=== PATIENT | male | born 1985 | race Caucasian/White ===

== ENCOUNTER 2018-06-27 07:13 | Observation (INO) | payer OTHER ==
[~2018-06-27] VITALS: Ht 172.7 cm; Wt 63.2 kg
[2018-06-27] MEDS ORDERED: ULTRAM 50MG50 MG PO (07:31)
[2018-06-27] MEDS ORDERED: DICLOFENAC SODI50 MG PO (07:31)
[2018-06-27] MEDS ORDERED: CIPROFLOXACIN500 MG PO (07:31)
[2018-06-27] MEDS ORDERED: KETOROLAC TROMETHAMINE 30 MG/ML VIAL IV STA (07:33)
[2018-06-27] MEDS ORDERED: ONDANSETRON HCL INJ 2MG/ML 2ML 2 MG/ML VIAL IV STA (07:33)
[2018-06-27] MEDS ORDERED: CEFTRIAXONE SOD 1 GM/NS 50 ML 50 ML IV ONE (07:45)
[2018-06-27] MEDS ORDERED: MORPHINE SULFATE 5 MG/ML VIAL IV PRN (07:45)
[2018-06-27 07:59] LABS: BASOPHILS % 0.6 % (0.0-1.0); EOSINOPHILS # (AUTO) 0.3 (0.0-0.4); EOSINOPHILS % 4.6 % (0.0-6.0); HEMATOCRIT 44.1 % (38.2-49.6); LYMPHOCYTES % 31.4 % (18.0-39.1); MEAN CORPUSCULAR HEMOGLOBIN 29.3 pg (28-32); MEAN CORPUSCULAR VOLUME 86.1 fL (81-99); MONOCYTES # (AUTO) 0.6 (0.2-0.8); NEUTROPHILS # (AUTO) 3.3 (2.1-6.9); NEUTROPHILS % 52.9 % (38.7-80.0); PLATELET COUNT 237 x10e3/uL (140-360); RED BLOOD COUNT 5.12 x10e6/uL (4.3-5.7); RED CELL DISTRIBUTION WIDTH 11.5 % (11.7-14.4)
[2018-06-27 08:01] LABS: CLARITY,URINE HAZY (CLEAR); COLOR,URINE YELLOW (YELLOW); KETONES,URINE NEGATIVE (NEGATIVE); LEUKOCYTE ESTERASE ,URINE NEGATIVE (NEGATIVE); NITRITE,URINE NEGATIVE (NEGATIVE); PROTEIN,URINE DIPSTICK TRACE (NEGATIVE)
[2018-06-27 08:02] LABS: BILIRUBIN,URINE NEGATIVE (NEGATIVE); URINE UROBILINOGEN 0.2 mg/dL (0.2 - 1)
[2018-06-27 08:09] LABS: INR 0.84; PROTHROMBIN TIME 12.3 seconds (11.9-14.5)
[2018-06-27 08:10] LABS: PARTIAL THROMBOPLASTIN TIME 32.3 seconds (23.8-35.5)
[2018-06-27 08:17] LABS: ALANINE AMINOTRANSFERASE 47 IU/L (0-55); ALBUMIN 4.5 g/dL (3.5-5.0); ALBUMIN/GLOBULIN RATIO 1.3 (0.8-2.0); ALKALINE PHOSPHATASE 77 IU/L (40-150); ANION GAP 15.9 mmol/L (8-16); BLOOD UREA NITROGEN 15 mg/dL (7-26); BUN/CREATININE RATIO 14 (6-25); CALCIUM 9.4 mg/dL (8.4-10.2); CARBON DIOXIDE 26 mmol/L (22-29); CHLORIDE 99 mmol/L (98-107); CREATININE, SERUM 1.04 mg/dL (0.72-1.25); EST GLOMERULAR FILTRATION RATE > 60 ML/MIN (60-); GLUCOSE 95 mg/dL (74-118); MAGNESIUM 2.7 MG/DL (1.3-2.1); POTASSIUM 3.9 mmol/L (3.5-5.1); SODIUM 137 mmol/L (136-145)
[2018-06-27] MEDS: SODIUM CHLORIDE 0.9% 1000ML 1,000 ML IV SCH ×2 (08:21→15:19)
[2018-06-27 08:30] LABS: BACTERIA,URINE FEW /HPF; EPITHELIAL CELLS,URINE FEW /LPF; MUCUS,URINE MANY (RARE)
--- NOTE | 2018-06-27 08:56 | NUR ---
DR FITCH AT BEDSIDE FOR RE-EVAL AND DISCUSSING THE CURRENT PLAN OF CARE WITH PATIENT AND FAMILY,VERBALIZED UNDERSTANDING. NO SIGNS OF ACUTE DISTRESS NOTED AT THIS TIME.
--- NOTE | 2018-06-27 09:44 | Diagnostic Imaging Report ---
Exam: KUB- 2 views Indication: Known left ureteral stone per outside hospital CT. Comparison: None. Findings: Bowel gas partially obscures visualization of bilateral kidneys. There is a 4 mm calcification overlying the left paraspinal musculature at the level of the lower endplate of the L3 vertebral body. There is a 3 mm calcification overlying the right mid kidney. There are bilateral calcified phleboliths. Nonobstructive bowel gas pattern. No acute osseous abnormality. Impression: A 4 mm calcification at the expected location of the proximal left ureter, suggestive of ureteral stone. Correlation with outside hospital CT would be helpful. Possible 3 mm right mid pole renal stone. Signed by: Dr. Frederic Castillo MD on 06/27/2018 9:40 AM
--- NOTE | 2018-06-27 11:02 | NUR ---
VERBAL REPORT GIVEN TO JAC PAN.
--- NOTE | 2018-06-27 11:02 | NUR ---
rec'd pt in walking rounds with jayjay swenson for continuity of care. amaris.s.s
[2018-06-27] MEDS: MORPHINE SULFATE INJ 4 MG/ML INJ 1ML IV PRN ×3 (11:04→19:46)
[2018-06-27] MEDS: ONDANSETRON HCL INJ 2MG/ML 2ML 2 MG/ML VIAL IV PRN ×3 (11:05→19:45)
[2018-06-27] MEDS ORDERED: ONDANSETRON HCL INJ 2MG/ML 2ML 2 MG/ML VIAL ONE ×2 (13:29→18:26)
[2018-06-27] MEDS ORDERED: PROPOFOL IV EMULSION 10 MG/ML 20 ML VIAL ONE (13:29)
[2018-06-27] MEDS ORDERED: LIDOCAINE HCL 2% LOCAL INJ 5 ML SDV VIAL INJ ONE (13:29)
[2018-06-27] MEDS ORDERED: SEVOFLURANE INHAL SOLN 250 ML PEN BTL ONE (13:29)
[2018-06-27] MEDS ORDERED: DEXAMETHASONE SOD PHOS INJ 4 MG/ML VIAL ONE (13:29)
[2018-06-27] MEDS ORDERED: MIDAZOLAM HCL 2 MG/2 ML VIAL ONE (13:39)
--- NOTE | 2018-06-27 13:45 | NUR ---
REPORT CALLED TO JACQUELYN FOR THIS PT. TO GO TO RM 106
--- NOTE | 2018-06-27 13:56 | NUR ---
DR. TAMMI LERMA AT BEDSIDE WITH PATIENT
[2018-06-27 14:31] VITALS: BP 127/60
[2018-06-27 15:21] VITALS: BP 127/66
[2018-06-27] MEDS ORDERED: KETOROLAC TROMETHAMINE 30 MG/ML VIAL IV PRN (16:15)
[2018-06-27] MEDS ORDERED: KETOROLAC TROMETHAMINE 30 MG/ML VIAL IV ONE (16:30)
[2018-06-27] MEDS ORDERED: MEPERIDINE HCL INJ 25 MG/ML VIAL ONE (18:13)
--- NOTE | 2018-06-27 18:14 | Consultation ---
DATE OF CONSULTATION: June 27, 2018 UROLOGY CONSULTATION REASON FOR CONSULTATION: Renal colic. HISTORY OF PRESENT ILLNESS: Negro Sloan is a 33-year-old man, who number of years ago passed a stone with left-sided flank pain at that time. The patient has never seen urologist. He denies previous hematuria, dysuria, urinary tract infections, or any urological intervention. The patient had severe left-sided flank pain and reported to his primary care physician, who ordered a CT. The CT showed an obstructing 5 mm mid left ureteral stone and a nonobstructing 5 mm right renal stone. The patient due to his obstruction was directed to go to the emergency room where he was evaluated and subsequently admitted. PAST MEDICAL AND SURGICAL HISTORY: None. ALLERGIES: NONE KNOWN. CURRENT MEDICATIONS: Normally none. SOCIAL HISTORY: The patient quit smoking half a year ago. He denies current smoking, ethanol, or drug use. 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 He has supportive family and friends at the bedside. FAMILY HISTORY: Significant for kidney stone disease in the patient's brother. REVIEW OF SYSTEMS: As consistent with the above history of present illness and past medical history. Otherwise, negative for all other systems. PHYSICAL EXAMINATION GENERAL: A healthy-appearing 33-year-old male, lying in bed, in no apparent distress. VITAL SIGNS: He is currently afebrile. Vital signs are stable. ABDOMEN: Soft and nondistended. It is tender in the left flank with mild left-sided costovertebral angle tenderness. Kidneys are not palpable without hepatosplenomegaly. No obvious evidence of hernia. GENITOURINARY: Testes are descended bilaterally. Testes and epididymides bilaterally palpably normal. The patient has a normal male phallus and normal on the lesion. RECTAL: Digital rectal exam is deferred at the present time. For the remaining physical examination systems, please refer to the admission history and physical as well as the ERT sheet. LABORATORY STUDIES: Patient's creatinine is 1.04, his white blood cell count is 6300, hemoglobin 16, platelets 237,000. KUB shows a stone present in the location of the mid ureter and another 3 mm stone in the right mid pole. Urine culture is pending. Urinalysis showed 11 to 20 RBCs, 11 to 20 WBCs, but nitrite negative urine. ASSESSMENT 1. Family history of urolithiasis. 2. Renal colic. 3. Microhematuria. 4. Left ureterolithiasis. 5. Right nephrolithiasis. 6. Left hydroureteronephrosis due to stone. 7. Pyuria without symptomatology of urinary tract infection. PLAN 1. I posted the patient emergently in the operating room for cystoscopy with retrograde pyelogram and insertion of the left stent. Due to availability of lithotripsy machine, we will proceed if visualized to perform ESWL in order to save the patient one of the future planned procedures. Following the procedure, the patient may be discharged home from urological standpoint assuming his symptomatology is adequately controlled. 2. Ongoing urological followup is the must. Thank you very much. Job#: [id number] MICHEAL
[2018-06-27] MEDS ORDERED: METOCLOPRAMIDE HCL 10 MG/2ML VIAL ONE (18:27)
--- NOTE | 2018-06-27 18:44 | NUR ---
Pt back to room via stretcher at this time. VSS with even and unlabored respirations on room air. Call light in reach. Addendum: 06/27/18 at 1844 by Portia Juan RN family at bedside
--- NOTE | 2018-06-27 19:30 | NUR ---
RECEIVED REPORT FROM AM RN.WALKING ROUNDS DONE.PAIN VOICED12/27.PAIN MEDICATION GIVEN.AMBULATES. VOIDED.TOLERATING THE DIET.FAMILY MEMBER AT BED SIDE.BED LOCKED AND IN LOWEST POSITION.PHONE AND CALL LIGHT WITHIN REACH.INSTRUCTED TO CALL FOR ASSISTANCE NEEDED.KEEP MONITOR THE PT.
[2018-06-27 20:00] VITALS: BP 130/55
[2018-06-27] MEDS: CEFTRIAXONE SOD 1 GM/NS 50 ML 50 ML IV SCH (20:30)
[2018-06-27 22:30] VITALS: BP 130/55
[2018-06-28] VITALS: BP 132/80
--- NOTE | 2018-06-28 00:20 | NUR ---
RESTING IN THE BED.STABLE CONDITION.
[2018-06-28] MEDS: ONDANSETRON HCL INJ 2MG/ML 2ML 2 MG/ML VIAL IV PRN ×2 (01:16→05:27)
[2018-06-28] MEDS: MORPHINE SULFATE INJ 4 MG/ML INJ 1ML IV PRN ×2 (01:16→05:27)
[2018-06-28 04:00] VITALS: BP 135/68
[2018-06-28] MEDS: SODIUM CHLORIDE 0.9% 1000ML 1,000 ML IV SCH ×2 (04:43→14:02)
--- NOTE | 2018-06-28 06:50 | NUR ---
REPORT GIVEN TO THE ONCOMING RN.WALKING ROUNDS DONE.STABLE CONDITION.
[2018-06-28] MEDS: CEFTRIAXONE SOD 1 GM/NS 50 ML 50 ML IV SCH (08:43)
[2018-06-28 08:48] VITALS: BP 135/68
[2018-06-28 08:50] VITALS: BP 137/66
--- NOTE | 2018-06-28 10:42 | NUR ---
DR. LIZARRAGA ROUNDING AT THIS TIME.
[2018-06-28] MEDS: CELECOXIB 100 MG CAP PO SCH ×2 (11:26→16:43)
[2018-06-28 12:00] VITALS: BP 130/58
[2018-06-28] MEDS ORDERED: TYLENOL # 31 EA PO (18:28)
[2018-06-28] MEDS ORDERED: DITROPAN XL5 MG PO (18:29)
[2018-06-28] MEDS ORDERED: CELEBREX100 MG PO (18:31)
--- NOTE | 2018-06-28 19:10 | NUR ---
Discharge instructions given to patient and family verbally as well as written. Discharge RX's given along with purpose and instructions on how to take. Patient and family verbalize instructions. IV removed with tip intact, dressing applied. All personal belongings packed. Pt escorted to personal vehicle via wheelchair in stable condition [facility] all personal belongings.
[2018-07-04] MEDS ORDERED: PHENAZOPYRIDIN100 MG PO (13:55)
[2018-07-04] MEDS ORDERED: AZO PO (13:58)
--- NOTE | 2018-07-21 09:01 | Operative Report ---
DATE OF PROCEDURE: 06/27/2018 SURGEON: Eben Culver MD PREOPERATIVE DIAGNOSES: 1. Left ureterolithiasis. 2. Left hydronephrosis due to stone. 3. Microhematuria. POSTOPERATIVE DIAGNOSES: 1. Left ureterolithiasis. 2. Left hydronephrosis due to stone. 3. Microhematuria. OPERATIONS PERFORMED: 1. Left-sided extracorporeal shockwave lithotripsy (separate procedure performed in a staged fashion for the left ureterolithiasis). 2. Cystourethroscopy with bilateral ureteral catheterization and retrograde ureteropyelography (separate procedure performed for the microhematuria). 3. Interpretation of retrograde ureteropyelography. 4. Supervision of fluoroscopy, no radiologist present. 5. Cystourethroscopy and insertion of left indwelling ureteral stent (separate procedure performed for diagnosis of the hydronephrosis). ANESTHESIA: General. COMPLICATIONS: None. CLINICAL SUMMARY: Negro Sloan is a 33-year-old man who presented with obstructing ureterolithiasis. He was brought for the above procedures. He was aware of the risks of bleeding, infection, injury to adjacent structures, need for additional procedures, and elected to proceed. OPERATIVE PROCEDURE IN DETAIL: Informed consent was verified. Negro Sloan was properly identified, taken to the operating room, placed on the lithotripsy table in supine position. Anesthesia was uneventfully begun. The patient's left ureterolithiasis was localized with biplanar fluoroscopy. A total of 3000 shocks were delivered to the 5 mm stone with excellent fragmentation noted. The patient was then carefully and gently repositioned in dorsal lithotomy position with all pressure points well padded. His genitalia were prepared and draped in usual sterile fashion. The cystoscope sheath with the visual obturator in place was atraumatically inserted into the patient's urethra and guided down the unremarkable distal urethra through the normal sphincteric region, through the normal prostate bed into the patient's bladder. Panendoscopy revealed no suspicious mucosal lesions, no tumors, no stones, no diverticula. Normally positioned and configured ureteral orifices were identified. There was blood emerging from the left ureteral orifice as one would expect. The ureteral catheter was used to cannulate each ureter and retrograde ureteropyelography was performed. With cystoscope and fluoroscopic guidance, a left-sided indwelling ureteral stent was then placed. It was coiled in the patient's kidney as well as the patient's bladder. The retaining sutures were cut short. Interpretation of Retrograde Ureteropyelography: Contrast was instilled in a retrograde fashion bilaterally. The right side was unremarkable except for the fact that he had a nonobstructing stone, but there was no hydronephrosis. No evidence of obstruction. The left hand side exhibited hydroureteronephrosis down to the level of the patient's ureteral stone. The stent was in good position, coiled in the patient's kidney as well as the patient's bladder at the end of the case. Eben MD [place]/MODL /[id number]
== END 2018-06-28 18:48 | disposition home or self-care (01) ==
LOC: ER 07:13 → ERHOLD 09:26 → MED/SURG 14:17
PROVIDERS: ADMIT Internal Medicine; ATTEND Internal Medicine
DX: N13.2 Hydronephrosis with renal and ureteral calculous obstruction (principal); R31.29 Other microscopic hematuria; N23 Unspecified renal colic; J45.909 Unspecified asthma, uncomplicated; Z84.1 Family history of disorders of kidney and ureter
CPT/HCPCS: 36415; 50590; 52332; 74018; 80053; 81001; 83735; 85025; 85610; 85730; 87086; 99284; C1758; C2617; G0378 ×2; J0696 ×2; J1100; J1885 ×2; J2001; J2175; J2250; J2270 ×2; J2405 ×2; J2704; J2765; J7030 ×2

== ENCOUNTER → 2018-07-04 | Day surgery (SDC) | payer OTHER ==
[~2018-07-04] MED LIST: AZO PO; BELLADONNA/OPIUM 30 MG SUPP RC ONE; CEFTRIAXONE SOD 1 GM/NS 50 ML 50 ML IV ONE; CELEBREX100 MG PO; CIPROFLOXACIN500 MG PO; DEXAMETHASONE SOD PHOS INJ 4 MG/ML VIAL ONE; DICLOFENAC SODI50 MG PO; DITROPAN XL5 MG PO; FENTANYL CITRATE/PF 100MCG/2 ML INJ ONE; IOPAMIDOL 610MG/1ML 300 MG/ML VIAL IV ONE; KETOROLAC TROMETHAMINE 30 MG/ML VIAL ONE; MIDAZOLAM HCL 2 MG/2 ML VIAL ONE; ONDANSETRON HCL INJ 2MG/ML 2ML 2 MG/ML VIAL ONE; PHENAZOPYRIDIN100 MG PO; PROPOFOL IV EMULSION 10 MG/ML 20 ML VIAL ONE; SEVOFLURANE INHAL SOLN 250 ML PEN BTL ONE; TYLENOL # 31 EA PO; ULTRAM 50MG50 MG PO
--- OUTSIDE RECORDS SUMMARY | 2018-07-04 12:49 | XMS REPORT ---
[facility] Address Unknown Phone Unavailable Care Team Providers Care Fiber Designer Name Role Phone GILBERTO LIZARRAGA Unavailable Unavailable Problems This patient has no known problems. Allergies, Adverse Reactions, Alerts This patient has no known allergies or adverse reactions. Medications This patient has no known medications. Results Test Description Test Time Test Comments Text Results Atomic Results Result Comments ABDOMEN-1VIEW (KUB) 2018-06-27 09:33:00 [place] [id number] Patient Name: JESSICA MURPHY MR #: [id number] : 1985 Age/Sex: 33/M Req #: [id number] [facility] Physician: GILBERTO LIZARRAGA MD Ordered by: MARCIA FITCH MD Report #: [id number] Location: [facility] Room/Bed: [place] [address] Procedure: [id number] DX/ABDOMEN-1VIEW (KUB) Exam Date: 06/27/18 Exam Time: 0850 REPORT STATUS: Signed Exam: KUB- 2 views Indication: Known left ureteral stone per outside hospital CT. Comparison: None. Findings: Bowel gas partially obscures visualization of bilateral kidneys. There is a 4 mm calcification overlying the left paraspinal musculature at the level of the lower endplate of the L3 vertebral body. There is a 3 mm calcification overlying the right mid kidney. There are bilateral calcified phleboliths. Nonobstructive bowel gas pattern. No acute osseous abnormality. Impression: A 4 mm calcification at the expected location of the proximal left ureter, suggestive of ureteral stone. Correlation with outside hospital CT would be helpful. Possible 3 mm right mid pole renal stone. Signed by: Dr. Bronson Cohng MD on 06/27/2018 9:40 AM Dictated By: BRONSON CHONG MD 9 Transcribed By: TA on 06/27/18939 COPY TO: MARCIA FITCH MD
[2018-07-04 17:50] VITALS: BP 121/87
--- NOTE | 2018-07-21 07:16 | Operative Report ---
DATE OF PROCEDURE: 07/04/2018 SURGEON: Eben Culver MD PREOPERATIVE DIAGNOSES: 1. Right nephrolithiasis. 2. Left ureterolithiasis. 3. Left indwelling ureteral stent. POSTOPERATIVE DIAGNOSES: 1. Right nephrolithiasis. 2. Left ureterolithiasis. 3. Left indwelling ureteral stent. OPERATION PERFORMED: Note, these were all staged procedures as part of a multi-stage and multi-step process in managing the patient's urolithiasis. 1. Right-sided extracorporeal shockwave lithotripsy (separate staged procedure performed for the right nephrolithiasis). 2. Cystourethroscopy with complicated removal of left indwelling ureteral stent (separate procedure performed for the diagnosis of stent done with separate scope). 3. Left ureteroscopy (separate procedure performed to evaluate for any residual ureterolithiasis). 4. Radiological services for supervision and interpretation of ureteroscopy. 5. Interpretation of retrograde ureteropyelography. 6. Supervision of fluoroscopy, no radiologist present. ANESTHESIA: General. COMPLICATIONS: None. CLINICAL SUMMARY: Negro Sloan is a 33-year-old man, who underwent a left ESWL of ureteral stone with placement of a stent for ureteral obstruction. He is brought to the operating room to perform the above procedures. He is aware of the risks of bleeding, infection, injury to adjacent structures, need for additional procedures and elected to proceed. OPERATIVE PROCEDURE IN DETAIL: Informed consent was verified. Negro Sloan was properly identified, taken to the operating room, placed on the lithotripsy table in supine position. Anesthesia was uneventfully begun. The patient's right nephrolithiasis was localized with biplanar fluoroscopy. A total of 3000 shocks were delivered to the 5 mm stone with fragmentation noted. The patient was then carefully and gently repositioned in dorsal lithotomy position with all pressure points well padded. His genitalia were prepared and draped in usual sterile fashion. The cystoscope sheath with the visual obturator in place was atraumatically inserted in the patient's urethra. It was guided down on the unremarkable urethra through the normal sphincteric region through the normal prostate into the patient's bladder. Panendoscopy revealed no suspicious mucosal lesions and no stones. The stent that was emerging from the left ureteral orifice was grasped and was pulled out through the urethral meatus. A guidewire was then placed through the stent and guided to the level of the patient's kidney. Flexible ureteroscope was then placed over the guidewire and guided to the level of the patient's kidney. Panendoscopy revealed Maurilio's plaques, but no tumors, no stones, no diverticula, no suspicious mucosal lesions. We carefully examined the ureters as we exited and it exhibited no stones. There was some inflammation noted in the region where we had performed the ESWL where the previous stone was, but the ureter was unremarkable. There were no strictures. There were no stones and there were no diverticula. The remainder of the ureter was unremarkable. Interpretation of retrograde ureteropyelography: Contrast was instilled in retrograde fashion on the left hand side. There was no hydronephrosis present. There were no filling defects. There were no suspicious lesions. No stones were identified. Unobstructed drainage was observed fluoroscopically. The patient's bladder was drained and cystoscope was withdrawn. Belladonna and opium suppositories were placed revealing a 20 g prostate that is smooth, nonfunctional without any nodules. The patient was then uneventfully reversed from anesthesia and taken to recovery room in stable condition. There were no complications to the procedure. The patient tolerated the procedure well. Explicit postoperative instructions were given. Plans will be to follow the patient up in the office in approximately a month, at which point in time we will begin our metabolic stone workup. Eben Culver MD [place]/MODL /[id number] cc: César Silva MD
== END | disposition home or self-care (01) ==
LOC: OR 12:46
PROVIDERS: ATTEND Urology
DX: N20.0 Calculus of kidney (principal); N20.1 Calculus of ureter; Z46.6 Encounter for fitting and adjustment of urinary device; N28.89 Other specified disorders of kidney and ureter; Z87.891 Personal history of nicotine dependence
CPT/HCPCS: 36415; 50590; 52351; 83970; 84550; C1766; J0696; J1100; J1885; J2250; J2405; J2704; Q9967